=== PATIENT | male | born 1955 | race Caucasian/White ===

== ENCOUNTER 2022-07-27 11:47 | Emergency (ER) | payer MEDICARE ==
[2022-07-27 12:04] VITALS: TEMP 98.1
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
[2022-07-27 13:53] LABS: Appearance,Urine Clear (Clear); Bilirubin,Urine Negative (Negative); Blood,Urine Negative (Negative); Color,Urine Yellow; Glucose,Urine (UA) Negative (Negative); Ketones,Urine Negative (Negative); Leukocyte Esterase,Urine Moderate (Negative); Mucus,Urine Rare /hpf; Nitrite,Urine Negative (Negative); PH, Urine 6.5 (5.0-8.0); Protein,Urine Negative (Negative); Specific Gravity,Urine 1.007 (1.001-1.035); Squamous Epithelial Cell,Urine <1 /hpf (0-4); Urobilinogen,Urine <2.0 mg/dL (<2.0); WBC,Urine 8 /hpf (0-5)
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
[2022-07-27] MEDS ORDERED: LEVOFLOXACIN 500 MG TAB PO STA (14:56)
[2022-07-27 15:08] VITALS: BP 126/78; PULSE 80; RESP 18
== END 2022-07-27 15:14 | disposition home or self-care (01) ==
LOC: EC 11:47
DX: N45.3 Epididymo-orchitis (principal); F17.200 Nicotine dependence, unspecified, uncomplicated; Z88.2 Allergy status to sulfonamides; Z88.0 Allergy status to penicillin
CPT/HCPCS: 76870; 81001; 93975; 99284